=== PATIENT | female | born 1990 | race Caucasian/White ===

== ENCOUNTER 2017-08-25 04:26 | Emergency (ER) | payer OTHER ==
[~2017-08-25] VITALS: Ht 160 cm; Wt 74.8 kg
[~2017-08-25 04:26] MED LIST: FLEXERIL10 MG PO; IBUPROFEN800 MG PO; MOTRIN IB200 MG PO; PRENATAL TABLE1 EAC3 PO; ULTRAM50 MG PO
[2017-08-25] MEDS ORDERED: MEDROL DOSEPAK4 MG PO (05:52)
[2017-08-25] MEDS ORDERED: BENADRYL ALLERG25 MG PO (05:52)
[2017-08-25 06:09] VITALS: BP 137/89
== END 2017-08-25 06:09 | disposition home or self-care (01) ==
LOC: EME 04:26
DX: T78.40XA Allergy, unspecified, initial encounter (principal); R22.0 Localized swelling, mass and lump, head; L29.9 Pruritus, unspecified
CPT/HCPCS: 99281; 99284